=== PATIENT | male | born 1995 | race Hispanic/Latino ===

== ENCOUNTER 2020-08-03 18:50 | Emergency (ER) | payer SELFPAY ==
[2020-08-03] MEDS ORDERED: Lorazepam 2 MG/ML VIAL ONE (19:11)
[2020-08-03 19:34] LABS: #Eosinphils 0.1 thou/uL (0.0-0.7); #Lymphocytes 2.9 thou/uL (1.20-3.40); #Monocytes 0.4 thou/uL (0.11-0.59); #Neutrophils 4.3 thou/uL (1.40-6.50); %Basophils 0.3 % (0.0-1.0); %Eosinophils 0.7 % (0.0-10.0); %Lymphocytes 37.6 % (21.0-51.0); %Monocytes 5.6 % (0.0-10.0); %Neutrophils 55.8 % (42.0-75.0); Hemoglobin 15.9 g/dL (14.0-18.0); Mean Corpuscular HGB CONC 35.1 g/dL (32.0-36.0); Mean Corpuscular Hemoglobin 31.1 pg (27.0-31.0); Mean Corpuscular Volume 88.6 fL (78.0-98.0); Mean Platelet Volume 8.9 fL (7.4-10.4); Platelet Count 226 thou/uL (130-400); RBC Distribution Width 11.7 % (11.5-14.5); White Blood Cell (WBC) Count 7.6 thou/uL (4.8-10.8)
[2020-08-03 20:47] LABS: Albumin 4.4 g/dL (3.5-5.0)
[2020-08-03 20:48] LABS: Chloride 107 mmol/L (98-107); Potassium 3.4 mmol/L (3.5-5.1); Sodium 142 mmol/L (136-145)
[2020-08-03 20:49] LABS: Calcium 8.8 mg/dL (7.8-10.44)
[2020-08-03 20:50] LABS: Globulin 2.8 g/dL (2.4-3.5); Glucose 120 mg/dL (70-105); Protein, Total 7.2 g/dL (6.0-8.3)
[2020-08-03 20:51] LABS: Anion Gap 9 mmol/L (10-20); Carbon Dioxide 29 mmol/L (22-29)
[2020-08-03 20:52] LABS: Alcohol Less than 10 mg/dL (Less than 10); Bilirubin, Total 0.6 mg/dL (0.2-1.2)
[2020-08-03 20:53] LABS: Alkaline Phosphatase 71 U/L (40-110); Calc. Creatinine Clearance 0 mL/min (70-130); Estimated GFR-MDRD Greater than 90
[2020-08-03 20:55] LABS: AST (SGOT) 15 U/L (5-34); BUN (Urea Nitrogen) 15 mg/dL (8.9-20.6)
[2020-08-03 20:56] LABS: ALT (SGPT) 11 U/L (8-55); Acetaminophen Less than 6.0 mcg/mL (10.0-30.0); Salicylate Less than 8.0 mg/dL (15.0-30.0)
== END 2020-08-03 21:18 | disposition home or self-care (01) ==
LOC: ERS 18:50
DX: R06.02 Shortness of breath (principal); T40.7X5A Adverse effect of cannabis (derivatives), initial encounter; F43.20 Adjustment disorder, unspecified
CPT/HCPCS: 36415; 80053; 80307; 85025; 93005; 96374; J2060